=== PATIENT | male | born 1975 | race Caucasian/White ===

== ENCOUNTER 2016-11-27 20:41 | Emergency (ER) | payer MEDICAID ==
[~2016-11-27] VITALS: Ht 190.5 cm; Wt 93.2 kg
[2016-11-27] MEDS ORDERED: SODIUM CHLORIDE FLUSH 10ML SYR IVF ONE (22:00)
[2016-11-27] MEDS ORDERED: ONDANSETRON 2MG/ML, 2ML IVPush ONE (22:00)
[2016-11-27] MEDS ORDERED: SODIUM CHLORIDE 0.9% 1,000ML IVBOLUS ONE (22:00)
[2016-11-27] MEDS ORDERED: ONDANSETRON 2MG/ML, 2ML ONE (22:15)
[2016-11-27] MEDS ORDERED: MORPHINE SULFATE 4 MG/ML, 1ML ONE ×2 (22:15→23:38)
[2016-11-27] MEDS: MORPHINE SULFATE 4 MG/ML, 1ML IVPush PRN ×2 (22:17→23:40)
[2016-11-27 22:30] LABS: HEMATOCRIT 43.4 % (39.2-51.8); WHITE BLOOD COUNT 8.1 x10^3/uL (3.4-10)
[2016-11-27 22:31] LABS: BLOOD UREA NITROGEN 10 mg/dL (7-18)
[2016-11-27] MEDS ORDERED: BACITRACIN ZINC OINT 500U/GM, 0.9 GM ONE (23:46)
[2016-11-28 00:10] VITALS: BP 113/72
== END 2016-11-28 00:21 | disposition home or self-care (01) ==
LOC: ED 22:23
DX: S06.0X1A Concussion with loss of consciousness of 30 minutes or less, initial encounter (principal); S16.1XXA Strain of muscle, fascia and tendon at neck level, initial encounter; S00.03XA Contusion of scalp, initial encounter; S20.212A Contusion of left front wall of thorax, initial encounter; F17.200 Nicotine dependence, unspecified, uncomplicated; Y04.0XXA Assault by unarmed brawl or fight, initial encounter; Y93.89 Activity, other specified; Y99.8 Other external cause status; Y92.410 Unspecified street and highway as the place of occurrence of the external cause
CPT/HCPCS: 36415; 70450; 71010; 80048; 82040; 85025; 93005; 96361; 96374; 96375; 96376; 99285; J2405; J7030